=== PATIENT | female | born 1985 | race Caucasian/White ===

== ENCOUNTER → 2017-12-21 18:22 | Outpatient (CLI) | payer BC, MEDICAID, SELFPAY ==
[2017-12-21 19:38] LABS: Basophils % 0.7 % (0.1-2.0); Eosinophils # 0.2 K/mm3 (0.0-0.4); Eosinophils % 2.9 % (0.1-12.0); Hematocrit 46.2 % (37.0-47.0); Hemoglobin 15.2 g/dL (12.2-16.2); Lymphocytes # 2.4 K/mm3 (0.7-4.5); Lymphocytes % 41.9 % (10-50); Mean Corpuscular HGB Conc 32.9 g/dL (31.8-35.4); Mean Corpuscular Hemoglobin 30.6 pg (27.0-31.2); Mean Corpuscular Volume 93.2 fl (81-99); Monocytes # 0.3 K/mm3 (0.1-1.0); Monocytes % 4.6 % (1.7-9.3); Neutrophils # 2.8 K/mm3 (1.8-7.8); Neutrophils % 49.8 % (37.0-80.0); Platelet Count 311 K/mm3 (142-424); Red Blood Count 4.96 M/mm3 (4.20-5.40); Red Cell Distribution Width 12.9 % (11.5-17.5); White Blood Count 5.7 K/mm3 (4.8-10.8)
[2017-12-21 19:53] LABS: Alanine Aminotransferase 22 U/L (12-78); Alkaline Phosphatase 114 U/L (46-116); Anion Gap 15.9 mEq/L (5-15); Aspartate Amino Transferase 20 U/L (15-37); Bilirubin,Total 0.6 mg/dL (0.2-1.0); Blood Urea Nitrogen 6 mg/dL (7-18); Calcium 9.2 mg/dL (8.5-10.1); Carbon Dioxide 27 mmol/L (21.0-32.0); Chloride 100 mmol/L (98-107); Chol/HDL Ratio 3.1 (1-3.5); Cholesterol 150 mg/dL (140-200); Creatinine,Serum 0.65 mg/dL (0.55-1.02); Estimated Glomerular Filt Rate 107 ml/min (>60); GFR (African American) 129 ML/MIN (>60); Globulin 3.9 gm/dl (1.3-3.2); Glucose 61 mg/dL (74-106); HDL Cholesterol 48 mg/dL (29-89); LDL Cholesterol 88 mg/dL (0-130); Potassium 3.9 mmoL/L (3.5-5.1); Sodium 139 mmol/L (136-145); T4 (Thyroxine) 11.7 ug/dl (4.7-13.3); Thyroid Stimulating Hormone 3.82 uIU/ml (0.358-3.740); Total Protein,Serum 7.9 gm/dL (6.4-8.2); Triglycerides 72 mg/dL (30-200); VLDL Cholesterol 14 mg/dL (0-40)
[2017-12-23 12:15] LABS: Folate 12.2 ng/mL (>3.0); Vitamin B12 691 pg/mL (232-1245); Vitamin D 25 Hydroxy 43.6 ng/mL (30.0-100.0)
== END ==
PROVIDERS: Visit Provider Nurse Practitioner Family
DX: R53.83 Other fatigue (principal); R05 Cough; R06.02 Shortness of breath; F17.200 Nicotine dependence, unspecified, uncomplicated
CPT/HCPCS: 80053; 80061; 82607; 82652; 82746; 84436; 84443; 85025

== ENCOUNTER → 2017-12-22 13:56 | Outpatient (CLI) | payer BC, MEDICAID, SELFPAY ==
--- NOTE | 2017-12-22 14:00 | XR_ITS ---
XR chest 2V HISTORY: ITS.REASON: wheezing ORDERING PHYSICIAN: Gilma Ordonez PATIENT AGE: 32 years COMPARISON: None FINDINGS: The cardiomediastinal silhouette and pulmonary vascularity are within normal limits. The lungs are clear without infiltrates, suspicious nodules, or pleural effusions. No acute bony abnormalities. IMPRESSION: Negative chest, no acute finding
== END ==
PROVIDERS: PCP Nurse Practitioner Family; Visit Provider Nurse Practitioner Family
DX: R06.02 Shortness of breath (principal); R06.2 Wheezing
CPT/HCPCS: 71046

== ENCOUNTER → 2018-04-25 09:39 | Outpatient (CLI) | payer OTHER, BC, MEDICAID, SELFPAY ==
--- NOTE | 2018-04-25 09:42 | MR_ITS ---
MR cervical spine wo con, MR 3-d myelogram/MRCP HISTORY: LT sided neck pain. Pain around scapula. Tingling sensation in neck. Tingling and pain in LT arm and into hand . ITS.REASON: neck pain ORDERING PHYSICIAN: Gilma Ordonez PATIENT AGE: 32 years Comparison: X-RAY 06-02-16 TECHNIQUE: Standard multiplanar multiecho sequences are performed without contrast. 3-D MIP and myelographic images are also rendered and reviewed FINDINGS: The craniocervical junction has an unremarkable appearance. There is normal alignment. There is some straightening of the cervical lordosis which is nonspecific and may be seen with patient positioning or muscle spasm. The disc spaces are well-preserved. No disc herniation or canal stenosis. No obvious fracture. No significant degenerative change. The paraspinal soft tissues have an unremarkable appearance. IMPRESSION: 1. Straightening of upper cervical lordosis which may be due to patient positioning or muscle spasm 2. Otherwise negative MRI of the cervical spine.
--- NOTE | 2018-04-25 09:42 | MR_ITS ---
MR shoulder LT wo con HISTORY:Recent injury with left shoulder pain, pain when raising left arm ITS.REASON: left shoulder pain ORDERING PHYSICIAN: Gilma Ordonez PATIENT AGE: 32 years Comparison: None TECHNIQUE: Standard multiplanar multiecho sequences are performed without contrast. FINDINGS: A benign-appearing cystic lesion is present in the base of the acromion measuring 7 mm. There are mild hypertrophic changes of the acromioclavicular joint with some bone marrow edema at the AC joint and minimal amount of fluid along the inferior surface of the distal chromium. There is mild thickening of the supraspinatus and infraspinatus tendons with slight increase in T2 signal suggesting tendinopathy/tendinosis. No evidence of rotator cuff tear. There is mild subacromial stenosis of 5 mm. The subscapularis tendon and teres minor tendons have an unremarkable appearance. Small amount fluid is present in the subcoracoid region. No obvious labral tear. Bicipital tendon is in place. No fracture or dislocation. IMPRESSION: 1. Subacromial stenosis with tendinopathy/tendinosis of the supraspinatus and infraspinatus tendon without evidence of rotator cuff tear 2. Subcoracoid bursitis 3. Benign-appearing cystic lesion of the base of the acromion
== END ==
PROVIDERS: PCP Nurse Practitioner Family; Visit Provider Nurse Practitioner Family
DX: M25.512 Pain in left shoulder (principal); M54.2 Cervicalgia; V89.2XXA Person injured in unspecified motor-vehicle accident, traffic, initial encounter
CPT/HCPCS: 72141; 73221; 76376

== ENCOUNTER 2018-06-14 15:00 | Outpatient (RCR) | payer OTHER, BC, MEDICAID, SELFPAY ==
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
== END 2018-06-14 15:05 | disposition home or self-care (01) ==
LOC: PT 15:00
PROVIDERS: Visit Provider Nurse Practitioner Family
DX: M54.2 Cervicalgia (principal)
CPT/HCPCS: 97010; 97012; 97014; 97035; 97110; 97140; 97163; G0283

== ENCOUNTER → 2018-07-30 13:52 | Outpatient (CLI) | payer OTHER, BC, MEDICAID, SELFPAY ==
[2018-07-30 14:20] LABS: C-Reactive Protein 3.3 mg/L (0.0-0.9)
[2018-07-30 14:34] LABS: Erythrocyte Sedimentation Rate 23 mm/hr (0-20)
[2018-07-31 12:26] LABS: Anti-Centromere B Antibodies <0.2 AI (0.0-0.9); Anti-Jo-1 <0.2 AI (0.0-0.9); Anti-Smith Antibody <0.2 AI (0.0-0.9); Antichromatin Antibodies <0.2 AI (0.0-0.9); RNP Antibodies <0.2 AI (0.0-0.9); Sjogren's Anti-SS-A <0.2 AI (0.0-0.9); Sjogren's Anti-SS-B <0.2 AI (0.0-0.9)
[2018-08-01 06:26] LABS: Anti-DNA (DS) Ab Qn <1 IU/mL (0-9); RA Latex Turbid. <10.0 IU/mL (0.0-13.9)
[2018-08-02 07:45] LABS: Anti-Cyclic Citrullinated Pept 3 units (0-19)
== END ==
PROVIDERS: Visit Provider Nurse Practitioner Family
DX: M25.50 Pain in unspecified joint (principal)
CPT/HCPCS: 85651; 86140; 86200; 86225; 86235; 86431

== ENCOUNTER → 2018-09-21 15:06 | Outpatient (CLI) | payer OTHER, SELFPAY ==
--- NOTE | 2018-09-21 15:13 | XR_ITS ---
XR hand LT min 3V HISTORY: Pain and bruising fourth digit ITS.REASON: broken finger ORDERING PHYSICIAN: Gilma Ordonez APRN PATIENT AGE: 33 years COMPARISON: None FINDINGS: Comminuted nondisplaced fracture involves the tuft of the distal phalanx of the fourth digit. No significant displacement or angulation. Otherwise negative. IMPRESSION: Nondisplaced comminuted fracture involves the tuft of the distal phalanx of the fourth digit.
== END ==
PROVIDERS: PCP Nurse Practitioner Family; Visit Provider Nurse Practitioner Family
DX: S62.602A Fracture of unspecified phalanx of right middle finger, initial encounter for closed fracture (principal)
CPT/HCPCS: 73130

== ENCOUNTER 2019-10-25 15:36 | Emergency (ER) | payer BC, MEDICAID, SELFPAY ==
[2019-10-25 15:37] VITALS: BP 159/76; PULSE 114; RESP 18; TEMP 36.9; O2SAT 95; BMI 27.4
[2019-10-25 15:45] LABS: Microscopic, Urine URINE MICROSCOPIC (MICROSCOPIC)
[2019-10-25 15:48] LABS: Appearance,Urine CLEAR (Clear); Bilirubin,Urine Negative (Negative); Blood, Urine Negative (Negative); Color,Urine YELLOW (Yellow); Glucose,Urine (UA) Negative (Negative); Ketones,Urine Negative (Negative); Leukocyte Esterase,Urine Negative (Negative); Nitrate,Urine Negative (Negative); Protein,Urine Negative (Negative); Specific Gravity, Urine 1.015 (1.005-1.030); Urobilinogen,Urine 0.2 EU/dl (0.2)
[2019-10-25 15:50] LABS: Urine Pregnancy, HCG Qual. Negative (Negative)
--- NOTE | 2019-10-25 15:53 | XR_ITS ---
PROCEDURE: XR CHEST PORTABLE CLINICAL HISTORY: cough COMPARISON: CR CXR2V XR chest 2V from 12/22/2017 FINDINGS: The cardiomediastinal silhouette and pulmonary vascularity are within normal limits. The lungs are clear without infiltrates, suspicious nodules, or pleural effusions. No acute bony abnormalities. IMPRESSION: No acute findings. Dictated by: Michael Mackey MD 10/25/2019 17:17 Michael Mackey MD in [place] 10/25/2019 17:17
[2019-10-25 16:00] LABS: Amorphous Sediment,Urine 1+ /lpf; Bacteria,Urine 2+ /lpf; RBC,Urine Occasional #/hpf (0-3); WBC,Urine Occasional #/hpf (0-3)
--- NOTE | 2019-10-25 16:00 | HMH.EDGENADL ---
ED Disposition Clinical Impression: Generalized weakness Disposition: Home, Self-Care Condition on Discharge: Good Instructions: DI for Muscle Weakness Referrals: Eliza Graf APRN [Primary Care Provider] - - Critical Care Critical Care Time: No Attestation: On 10/25/19, the high probability of a clinically significant, sudden or life threatening deterioration of the following system(s) required my full and direct attention, intervention and personal management. The time I documented below is in addition to time spent performing reported procedures but includes the following listed in this critical care notation. Medical Decision Making - Medical Records Medical records reviewed: Yes: I reviewed the patient's medical records. - Andre Inquiry Pt receiving controlled substance: No Vital Signs: 10/25/19 15:37 Temperature 98.4 F Temperature Source Oral Pulse Rate [Left Radial] 114 H Respiratory Rate 18 Blood Pressure [Right Arm] 159/76 H Blood Pressure Mean [Right Arm] 103 Blood Pressure Source [Right Arm] Automatic Cuff Blood Pressure Position [Right Arm] Sitting 02 Sat by Pulse Oximetry 95 Oxygen Delivery Method Room Air - Lab Data Lab Results 10/25/19 15:39: Urine Color Yellow, Urine Appearance Clear, Urine pH 6.0, Ur Specific [place] 1.015, Urine Protein Negative, Urine Glucose (UA) Negative, Urine Ketones Negative, Urine Blood Negative, Urine Nitrate Negative, Urine Bilirubin Negative, Urine Urobilinogen 0.2, Ur Leukocyte Esterase Negative, Urine RBC Occasional, Urine WBC Occasional, Ur Squamous Epith Cells 3-5, Amorphous Sediment 1+, Urine Bacteria 2+ 10/25/19 15:39: Urine HCG, Qual Negative 10/25/19 15:39: Urine Opiates Screen Negative, Urine Methadone Screen Negative, Ur Barbituates Screen Negative, Ur Phencyclidine Scrn Negative, Ur Amphetamines Screen Negative, U Benzodiazepines Scrn Negative, Urine Cocaine Screen Negative, U Marijuana (THC) Screen Negative 10/25/19 16:16: WBC 8.1, RBC 4.91, Hgb 15.5, Hct 45.2, MCV 92.0, MCH 31.5 H, MCHC 34.2, RDW 13.0, Plt Count 220, MPV 8.8, Neut % (Auto) 52.5, Lymph % (Auto) 42.1, Swift % (Auto) 3.3, Eos % (Auto) 1.5, Baso % (Auto) 0.6, Neut # (Auto) 4.3, Lymph # (Auto) 3.4, Swift # (Auto) 0.3, Eos # (Auto) 0.1, Baso # (Auto) 0.1 10/25/19 16:16: Sodium 140, Potassium 3.9, Chloride 101, Carbon Dioxide 31 H, Anion Gap 11.9, BUN 7, Creatinine 0.60, Estimated Creat Clear 159, Estimated GFR 116, Est GFR ( Amer) 140, Glucose 98, Calcium 9.8, Total Bilirubin 0.5, AST 33, ALT 15, Alkaline Phosphatase 111, Troponin I < 0.01, Total Protein 8.3 H, Albumin 4.8, Globulin 3.5 H, Albumin/Globulin Ratio 1.4 Result diagrams: 10/25/19 16:16 10/25/19 16:16 Orders (Tests/Meds): ORDERS Category Date Time Status XR chest portable Stat Exams 10/25/19 15:53 Taken Troponin I Q3H Lab 10/25/19 19:00 Ordered Troponin I Q3H Lab 10/25/19 22:00 Ordered Urine Culture Stat Micro 10/25/19 15:39 Received - Reevaluation(s) Time: 16:58 Reevaluation #1: On reevaluation, patient appears to be functioning appropriately. She is ambulatory. Repeat neurologic exam is normal. There is no focal weakness or change in mental status. Patient's laboratory studies were unremarkable. Urine some showed some contamination. Patient needs to follow-up with her PCP in 24 hours. Given strict return precautions. Verbalized understanding. Medical Decision Narrative: 34-year-old female presented to the emergency department with very vague symptoms. I did have long discussion with her trying to narrow down exactly what is going on. She just states that she feels like all of her extremities are heavy and she has no energy. Patient is afebrile, no hypoxia. Basic work-up will be initiated. General Adult HPI - General Chief complaint: PAIN Stated complaint: Pain left side neck,shoulder and side Time Seen by Provider: 10/25/19 15:40 Mode of Arrival: Ambulatory Limitations: No Limita
[2019-10-25 16:10] LABS: Amphetamine/Metha Screen,Urine Negative ng/ml (<1000); Barbiturates Screen,Urine Negative ng/ml (<200)
[2019-10-25 16:11] LABS: Benzodiazepines Screen,Urine Negative ng/ml (<200)
[2019-10-25 16:12] LABS: Cannabinoid Screen,Urine Negative ng/ml (<50); Methadone Screen,Urine Negative ng/ml (<300)
[2019-10-25 16:13] LABS: Cocaine Screen,Urine Negative ng/ml (<300)
[2019-10-25 16:21] LABS: Opiate Screen,Urine Negative ng/ml (<300)
[2019-10-25 16:22] LABS: Phencyclidine Screen,Urine Negative ng/ml (<25)
[2019-10-25 16:42] LABS: Alanine Aminotransferase 15 U/L (12-78); Albumin Level 4.8 g/dl (3.5-5.0); Albumin/Globulin Ratio 1.4 (1.1-1.8); Alkaline Phosphatase 111 U/L (38-126); Anion Gap 11.9 mEq/L (5-15); Aspartate Amino Transferase 33 U/L (14-36); Basophils # 0.1 K/mm3 (0-0.2); Basophils % 0.6 % (0.1-2.0); Bilirubin,Total 0.5 mg/dl (0.2-1.3); Blood Urea Nitrogen 7 mg/dl (7-17); Calcium 9.8 mg/dl (8.4-10.2); Carbon Dioxide 31 mmol/L (22.0-30.0); Chloride 101 mmol/L (98-107); Creatinine Clearance Estimated 159 mL/min (50-200); Eosinophils # 0.1 K/mm3 (0.0-0.4); Eosinophils % 1.5 % (0.1-12.0); Estimated Glomerular Filt Rate 116 ml/min (>60); GFR (African American) 140 ML/MIN (>60); Globulin 3.5 g/dL (1.3-3.2); Glucose 98 mg/dl (74-100); Hematocrit 45.2 % (37.0-47.0); Hemoglobin 15.5 g/dL (12.2-16.2); Lymphocytes # 3.4 K/mm3 (0.7-4.5); Lymphocytes % 42.1 % (10-50); Mean Corpuscular HGB Conc 34.2 g/dL (31.8-35.4); Mean Corpuscular Hemoglobin 31.5 pg (27.0-31.2); Mean Platelet Volume 8.8 fl (7.4-10.4); Monocytes # 0.3 K/mm3 (0.1-1.0); Monocytes % 3.3 % (1.7-9.3); Neutrophils # 4.3 K/mm3 (1.8-7.8); Neutrophils % 52.5 % (37.0-80.0); Platelet Count 220 K/mm3 (142-424); Potassium 3.9 mmoL/L (3.5-5.1); Red Blood Count 4.91 M/mm3 (4.20-5.40); Sodium 140 mmol/L (136-145); Total Protein,Serum 8.3 g/dl (6.3-8.2); White Blood Count 8.1 K/mm3 (4.8-10.8)
[2019-10-25 16:54] LABS: Troponin I < 0.01 ng/ml (0.00-0.034)
[2019-10-25 17:11] VITALS: BP 129/68; PULSE 95; RESP 19; TEMP 37.1; O2SAT 100
== END 2019-10-25 17:12 | disposition home or self-care (01) ==
PROVIDERS: Emergency Provider Emergency Medicine; PCP Nurse Practitioner Family
DX: R53.1 Weakness (principal); R60.0 Localized edema; Z88.2 Allergy status to sulfonamides; F41.8 Other specified anxiety disorders; F17.210 Nicotine dependence, cigarettes, uncomplicated; Z79.899 Other long term (current) drug therapy
CPT/HCPCS: 71045; 80053; 80305; 81001; 81025; 84484; 85025; 87086; 99283